=== PATIENT | female | born 1975 | race African-American/Black ===

== ENCOUNTER 2019-02-02 06:35 | Day surgery (SDC) | payer OTHER ==
[~2019-02-02 06:35] MED LIST: Lactated Ringers 1,000 ML IV SCH
[2019-02-02] MEDS ORDERED: fentaNYL 250 MCG/5 ML SDV ONE (06:48)
[2019-02-02] MEDS ORDERED: Ondansetron 4 MG/2 ML SDV ONE (06:48)
[2019-02-02] MEDS ORDERED: Lidocaine 2% 5 ML SDV ONE (06:48)
[2019-02-02] MEDS ORDERED: Midazolam 1 MG/ML 2 ML SDV ONE (06:48)
[2019-02-02] MEDS ORDERED: Propofol 200 MG/20 ML SDV ONE (06:48)
[2019-02-02] MEDS ORDERED: Lidocaine 1% 20 ML MDV ONE (07:28)
[2019-02-02] MEDS ORDERED: ceFAZolin 1 GM in Premix Bag 1 BAG IV SCH (08:00)
[2019-02-02] MEDS ORDERED: Acetaminophen/HYDROcodone 325-5 MG Tab PO PRN (08:00)
--- NOTE | 2019-02-02 08:03 | PCM.PREANE ---
Preanesthetic Assessment - Anesthesia/Transfusion/Family Hx Anesthesia History: Prior Anesthesia Without Reaction Family History of Anesthesia Reaction: No Transfusion History: No Prior Transfusion(s) - Review of Systems General: No Symptoms Pulmonary: No Symptoms Cardiovascular: No Symptoms Gastrointestinal: No Symptoms Neurological: No Symptoms Other: Reports: None - Physical Assessment O2 Sat by Pulse Oximetry: 100 Respiratory Rate: 16 Vital Signs: Last Vital Signs Temp 97.0 F 02/02/19 07:30 Pulse 80 02/02/19 07:30 Resp 16 02/02/19 07:30 BP 129/72 02/02/19 07:30 Pulse Ox 100 02/02/19 07:30 Height: 5 ft 0.5 in Weight: 77.111 kg ASA Class: 2 Mental Status: Alert & Oriented x3 Airway Class: Mallampati = 2 Dentition: Reports: Normal Dentition Thyro-Mental Finger Breadths: 3 Mouth Opening Finger Breadths: 3 ROM/Head Extension: Full Lungs: Clear to Auscultation, Normal Respiratory Effort Cardiovascular: Regular Rate, Regular Rhythm - Lab Values: Laboratory Last Values Urine HCG, Qual NEGATIVE (NEGATIVE) 02/02/19 07:28 - Allergies Allergies/Adverse Reactions: Allergies Allergy/AdvReac Type Severity Reaction Status Date / Time No Known Allergies Allergy Verified 01/27/19 11:23 - Acknowledgements Anesthesia Type Planned: General Anesthesia Pt an Appropriate Candidate for the Planned Anesthesia: Yes Alternatives and Risks of Anesthesia Discussed w Pt/Guardian: Yes Pt/Guardian Understands and Agrees with Anesthesia Plan: Yes PreAnesthesia Questionnaire - Past Health History Medical/Surgical History: Denies Medical/Surgical History HEENT History: Reports: None Cardiovascular History: Reports: None Respiratory History: Reports: None Gastrointestinal History: Reports: None Genitourinary History: Reports: None 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 [No Known Home Meds] 01/27/19 [History] - CURRENT (IN HOUSE) MEDS Current Meds: Current Medications Hydrocodone Bitart/Acetaminophen (Anderson 325-5 Mg) 1 - 2 tab PO Q4H PRN PRN Reason: Pain Cefazolin Sodium/Dextrose 1 gm (/ Premix) 50 mls @ 100 mls/hr IV ONCALL CHANTAL Lactated Ringer's (Ringers, Lactated) 1,000 mls @ 100 mls/hr IV ASD[facility]RECTED [facility] Last Admin: 02/02/19 07:40 Dose: 100 mls/hr Discontinued Medications Fentanyl (Sublimaze) Confirm Administered Dose 250 mcg .ROUTE .STK-MED ONE Stop: 02/02/19 06:49 Lidocaine (Xylocaine-Mpf 2%) Confirm Administered Dose 5 ml .ROUTE .STK-MED ONE Stop: 02/02/19 06:49 Lidocaine HCl (Xylocaine 1%) Confirm Administered Dose 20 ml .ROUTE .STK-MED ONE Stop: 02/02/19 07:29 Midazolam HCl (Versed 1 Mg/Ml) Confirm Administered Dose 2 mg .ROUTE .STK-MED ONE Stop: 02/02/19 06:49 Ondansetron HCl (Zofran) Confirm Administered Dose 4 mg .ROUTE .STK-MED ONE Stop: 02/02/19 06:49 Propofol (Diprivan 20 Ml) Confirm Administered Dose 200 mg .ROUTE .STK-MED ONE Stop: 02/02/19 06:49
[2019-02-02] MEDS ORDERED: ePHEDrine 50 MG/ML SDV ONE (08:23)
[2019-02-02] MEDS ORDERED: Glycopyrrolate 0.2 MG/ML SDV ONE ×2 (08:23→08:25)
[2019-02-02] MEDS ORDERED: Albuterol 0.083% 2.5 MG/3 ML Neb Soln NEB PRN (08:30)
[2019-02-02] MEDS ORDERED: 50% Dextrose in Water 50 ML Syringe IVPUSH PRN (08:30)
[2019-02-02] MEDS ORDERED: EPINEPHrine 1:10,000 1 MG/10 ML Syringe IVPUSH PRN (08:30)
[2019-02-02] MEDS ORDERED: Atropine 0.1 MG/ML 10 ML Syringe IVPUSH PRN ×2 (08:30)
[2019-02-02] MEDS ORDERED: Naloxone 0.4 MG/ML Syringe IVPUSH PRN (08:30)
--- NOTE | 2019-02-02 08:54 | PCM.OPNOTE ---
- General Post-Op/Procedure Note Date of Surgery/Procedure: 02/02/19 Operative Procedure(s): R knee scope with PMM Post-Op Diagnosis: R med meniscus tear Anesthesia Technique: General LMA Primary Surgeon: Justine Leavitt Certified Vehicle Fire Investigator: Luther Cottrell Jr in mLs: 5 Condition: Good Free Text/Narrative:: tt=19 min #[id number]
[2019-02-02] MEDS: fentaNYL 100 MCG/2 ML SDV IVPUSH PRN ×4 (09:17→09:35)
--- NOTE | 2019-02-02 09:36 | PCM.POSTAN ---
POST ANESTHESIA ASSESSMENT - MENTAL STATUS Mental Status: Alert, Oriented - VITAL SIGNS Pulse Rate: 80 SaO2: 98 Resp Rate: 14 - RESPIRATORY Respiratory Status: Respiratory Rate WNL, Airway Patent, O2 Saturation Stable, Supplemental Oxygen (per NC) - CARDIOVASCULAR CV Status: Pulse Rate WNL, Blood Pressure Stable - GASTROINTESTINAL GI Status: No Symptoms - PAIN Free Text/Narrative:: Resting comfortably. - POST OP HYDRATION Hydration Status: Adequate & Stable
--- NOTE | 2019-02-02 11:27 | PCM48HPAN ---
Post Anesthesia Note - EVALUATION WITHIN 48HRS OF ANESTHETIC Vital Signs in Normal Range: Yes Patient Participated in Evaluation: Yes Respiratory Function Stable: Yes Airway Patent: Yes Cardiovascular Function Stable: Yes Hydration Status Stable: Yes Pain Control Satisfactory: Yes Nausea and Vomiting Control Satisfactory: Yes Mental Status Recovered: Yes Pulse Rate: 80 Resp Rate: 16
--- NOTE | 2019-02-02 15:09 | OR ---
SURGEON: Justine Leavitt MD DATE OF PROCEDURE: 02/02/2019 PREOPERATIVE DIAGNOSIS: Right knee medial meniscus tear. POSTOPERATIVE DIAGNOSIS: Right knee medial meniscus tear. PROCEDURE PERFORMED: Right knee arthroscopy with partial medial meniscectomy. PRIMARY SURGEON: Justine Leavitt MD. CASING PULLER: Luther Cottrell DO, PGY-2. ANESTHESIA: General. ESTIMATED BLOOD LOSS: 5 mL. TOURNIQUET TIME: See nursing record. COMPLICATIONS: None. DVT PROPHYLAXIS: Not indicated. IMPLANTS USED: None. BRIEF HISTORY: Belen is a 43-year-old female who sustained a work-related injury to her right knee. An MRI did show a tear of the medial meniscus. Due to her lack of response to conservative treatment, I did recommend surgical intervention. The risks and goals of procedure were discussed with the patient and were documented preoperatively. She agreed to proceed. DESCRIPTION OF PROCEDURE: The patient was properly identified and brought to the operating room. She was transferred from the OR cart and placed on the operating table in supine position. General anesthesia was administered. After adequate anesthesia was obtained, a well-padded tourniquet was applied to the right lower extremity. The right lower extremity was then prepped in standard fashion using ChloraPrep solution. It was then sterilely draped. A time-out was performed to ensure correct site and procedure. Preoperative antibiotics were given. The surgical site had been marked preoperatively. An Esmarch was used to exsanguinate the right lower extremity and the tourniquet was inflated to 250 mmHg. A lateral portal arthrotomy was established. Blunt trocar and cannula were introduced into the suprapatellar pouch. Camera, inflow, and outflow were assembled. No significant synovitis was noted within the suprapatellar pouch. The patellofemoral joint was visualized. No significant degenerative changes were noted. The fat pad was quite abundant and appeared to be causing some impingement as the knee was taken through a range of motion. I then extended down the lateral and medial gutter. No loose bodies were identified. I then entered the medial compartment. A medial portal arthrotomy was established. A blunt probe was inserted. A degenerative tear of the posterior horn of the medial meniscus was noted, which appeared to be unstable. Using a combination of biters and shaver, this was resected back to a stable remnant. It was again probed and found to be stable. The joint surfaces showed minimal degenerative changes. I then entered the notch. Both the ACL and PCL were visualized and probed and found to be intact. I then entered the lateral compartment. 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 The meniscus was intact and no tearing or instability was noted. No degenerative changes were noted along the lateral femoral condyle. I then returned to the patellofemoral joint. The shaver was used to resect a portion of the fat pad. The knee was again taken through a range of motion. No further impingement within the patellofemoral joint was noted. The instruments were then removed from the knee. The portal sites were closed with 3-0 nylon. 1% Lidocaine was injected along the portal tracts. Xeroform gauze was placed over the wound and a bulky dressing was applied. The tourniquet was then deflated. She was awakened from her anesthetic and transferred back to the operating room cart. She was brought to recovery room in stable condition. All needle and sponge counts were correct. DEVYN / JOSE /[id number]
== END 2019-02-02 12:10 | disposition home or self-care (01) ==
LOC: MW.SDS 06:35
PROVIDERS: ATTEND Orthopaedic Surgery
DX: S83.241A Other tear of medial meniscus, current injury, right knee, initial encounter (principal); M94.261 Chondromalacia, right knee; E66.9 Obesity, unspecified; Z68.32 Body mass index [BMI] 32.0-32.9, adult; X58.XXXA Exposure to other specified factors, initial encounter; Y99.0 Civilian activity done for income or pay
CPT/HCPCS: 29881; 81025; 88304; A9270; J2001; J2250; J2405; J2704; J3010; J3490; J7120; 01400